=== PATIENT | male | born 1960 | race Two or more races ===

== ENCOUNTER 2025-03-04 10:58 | Outpatient (AMB) | payer MEDICAID, SELFPAY ==
--- NOTE | 2025-03-04 11:10 | A.OFFVIS_ITS ---
Intake Visit Reasons: Cerebrovascular accident HPI Comments Details: The patient is a 64 year old individual presenting for a neurology consultation for management of post-stroke symptoms. The patient has a history of a stroke, which occurred approximately four years ago per the patient's report, though accompanying documents indicate it was in 2020. The stroke resulted in left- sided paralysis and body tightness. The patient's chief complaints are generalized body pain, memory issues, stiffness of the left side, and difficulty walking. The patient also reports specific pain in the neck and left shoulder. This is the patient's first visit to this office. The patient resides in a skilled nursing. Current medications include gabapentin 100 mg at night and baclofen 10 mg twice daily. Review of Systems Narrative Constitutional:? Complain of generalized pain HEENT:?No headache, vision changes, hearing loss, nasal congestion, sore throat. Cardiovascular:?No chest pain, palpitations, orthopnea, PND, or leg swelling. Respiratory:?No cough, shortness of breath, wheezing, or hemoptysis. Gastrointestinal:?No nausea, vomiting, abdominal pain, diarrhea, or constipation. Genitourinary:?No dysuria, frequency, incontinence, or hematuria. Musculoskeletal:? Complain of left shoulder pain and neck pain Neurological:? Left-sided weakness and difficulty walking Psychiatric:?No anxiety, depression, mood swings, sleep disturbance, or hallucinations. Endocrine:?No heat/cold intolerance, polydipsia, polyuria, or hair/skin changes. Hematologic/Lymphatic:?No easy bruising, bleeding, or lymphadenopathy. Integumentary (Skin):?No rash, lesions, itching, or color changes. Allergic/Immunologic:?No seasonal allergies, hives, or recurrent infections. Physical Exam Neuro Other: Mental Status: He is alert and awake with normal spontaneity of speech fluency comprehension and affect. He has following commands. Cranial Nerves: CN II: Visual freeman full to confrontation, visual acuity intact. CN III, IV, : Pupils equal, round, reactive to light and accommodation. Extraocular movements are normal. CN V: Facial sensation is normal. CN VII: Facial movements symmetrical. CN VIII: Hearing intact to bedside conversation is normal. CN IX, X: Palate elevates symmetrically. CN XI: Shoulder shrug and head turn symmetrical. CN XII: Tongue midline without atrophy or fasciculations. Motor: Moderate spastic left hemiparesis. Reflexes: Deep tendon reflexes are brisk in right leg. Coordination: [id number]-to-[id number] on the right side is okay and he could not do with left hand. Gait and Station: He is in a wheelchair but apparently he is able to take steps with a quad cane. Extrapyramidal: Full facial expressions and blinking. No rigidity. Movements are appropriate wit h no tremor or abnormality. Speech: Normal; no dysarthria or tremor. Assessment & Plan Assessment & Plan (1) Left hemiparesis: Code(s): G81.94 - Hemiplegia, unspecified affecting left nondominant side Category: Medical (2) Cerebral infarction: Code(s): I63.9 - Cerebral infarction, unspecified Category: Medical Qualifiers: Cerebral infarction mechanism: thrombosis Precerebral and cerebral artery: unspecified cerebral artery Qualified Code(s): I63.30 - Cerebral infarction due to thrombosis of unspecified cerebral artery Plan Impression recommendations: 64 years old man who was not sure why he was here and even the staff of [facility] could not tell me why he was here. According to some documents with the him, he suffered from a stroke in 2020 resulting in left-sided weakness. Upon questioning, he complain of pain and neck and left shoulder, stiffness of left side, difficulty walking. His examination revealed moderate left spastic hemiparesis. He was treated with gabapentin 100 mg at night and baclofen 10 mg twice a day. As far as nighttime pain is concerned, my suggestion would be to try increasing dose of gabapentin to 2-300 mg at bedtime and 4 stiffness or spasticity during daytime, baclofen 20 mg twice a day. A noncontrast MRI of brain is requested for definition of his brain pathology. Orders: Orders MR head/brain wo con Today G81.94 - Hemiplegia, unspecified affecting left nondominant side, I63.30 - Cerebral infarction due to thrombosis of unspecified cerebral artery Coding Level of Care Code New Pt Level 4 (16668) Diagnoses Left hemiparesis G81.94 Cerebral infarction due to thrombosis of cerebral artery I63.30 Cerebral infarction mechanism: thrombosis Precerebral and cerebral artery: unspecified cerebral artery
--- OUTSIDE RECORDS SUMMARY | 2025-03-04 14:21 | XMS_ITS | Clinical Summary ---
Author Organization [facility] Address [address] [place] [phone] Phone Care Team Providers Care Shipping Clerk Name Role Phone Clarisse Finn Primary Care Provider [phone] Social History Tobacco Use Types Packs/Day Years Used Date Smoking Tobacco: Never Assessed Sex and Gender Information Value Date Recorded Sex Assigned at Not on file Legal Sex Male 3:37 AM EST Gender Identity Not on file Sexual Orientation Not on file Plan of Treatment Upcoming Encounters Date Type Department Care Team (Late st Contact Info) Description 03/18/2025 9:40 AM EST Consult Gastroenterology - [address] [facility] [address] [place] [phone] Mayra Leonard NP [address] [address] Health Maintenance Due Date Last Done Comments Colorectal Cancer Screening: Colonoscopy 1960 Diabetes: Annual GFR (Glomer ular Filtration Rate) 1959 Diabetes: Annual Foot Exam 09/17/1969 Diabetes: Annual Retina Eye Exam 09/17/1969 DTaP,Tdap,and Td Vaccines (1 - Tdap) 09/17/1978 Pneumococcal Vaccine: 50+ Ye ars (1 of 1 - PCV) 09/17/2009 RSV Immunization Adult Patie nts (1 - Risk 50-74 years 1-dose series) 09/17/2009 Zoster Vaccines (1 of 2) 09/17/2009 Depression Screening 04/04/2024 Abdominal Aortic Aneurysm (A AA) Screen 08/08/2024 Cholesterol Screening (Lipid Panel) 08/08/2024 Diabetes: Annual Urine Albumin-Creatinine Ratio (uACR) 08/08/2024 Diabetes: Blood Sugar Contro l Test (HGBA1C) 08/08/2024 Hepatitis C Screening 08/08/2024 Hypertension/CHF/CAD Annual BMP Blood Test 08/08/2024 Social Influencers of Health Screening 08/08/2024 Falls Risk Assessment 09/17/2024 COVID-19 Vaccine (1 - 2024-2 6 season) 2024 Influenza Vaccine (#1) 2024 HIB Vaccines Aged Out No longer eligi ble based on patient's age to complete this topic HPV Vaccines Aged Out No longer eligi ble based on patient's age to complete this topic Hepatitis A Vaccines Aged Out No long er eligible based on patient's age to complete this topic Hepatitis B Vaccines Aged Out No long er eligible based on patient's age to complete this topic IPV Vaccines Aged Out No longer eligi ble based on patient's age to complete this topic MMR Vaccines Aged Out No longer eligi ble based on patient's age to complete this topic Meningococcal ACWY Vaccine Aged Out N o longer eligible based on patient's age to complete this topic Meningococcal B Vaccine Aged Out No l onger eligible based on patient's age to complete this topic RSV Immunization Patients Un chiqui 20 months Aged Out No longer eligible b ased on patient's age to complete this topic Varicella Vaccines Aged Out No longer eligible based on patient's age to complete this topic Insurance [place] - [place] Care Teams Shipping Clerk Relationship Specialty Start Date End Date Clarisse Finn [address] [place] [phone] PCP - General Family Medicine 10/22/24
== END 2025-03-04 11:37 | disposition home or self-care (01) ==
LOC: HO.HSM 10:58
PROVIDERS: PCP Nurse Practitioner Family; Visit Provider Psychiatry & Neurology Neurology
DX: G81.94 Hemiplegia, unspecified affecting left nondominant side (principal); I63.30 Cerebral infarction due to thrombosis of unspecified cerebral artery
CPT/HCPCS: 99204

== ENCOUNTER → 2025-03-04 10:58 | Outpatient (BNVA) | payer MEDICAID, SELFPAY | PROVIDERS: PCP Nurse Practitioner Family; Visit Provider Psychiatry & Neurology Neurology | DX: I63.30 Cerebral infarction due to thrombosis of unspecified cerebral artery (principal); G81.94 Hemiplegia, unspecified affecting left nondominant side; Z79.899 Other long term (current) drug therapy | CPT/HCPCS: 99202 ==